=== PATIENT | female | born 1995 | race Caucasian/White ===

== ENCOUNTER 2021-03-01 17:31 | Emergency (ER) | payer BC ==
[~2021-03-01] VITALS: Ht 154.9 cm; Wt 52.7 kg
[2021-03-01 18:20] LABS: HEMATOCRIT 37.2 % (36.0-47.0); HEMOGLOBIN 12.3 g/dl (12.0-15.5); MEAN CORPUSCULAR HEMOGLOBIN 29.9 pg (27.0-33.0); MEAN CORPUSCULAR HGB CONC 33.1 g/dl (32.0-36.5); MEAN CORPUSCULAR VOLUME 90.3 fl (80.0-96.0); PLATELET COUNT, AUTOMATED 189 10^3/uL (150-450); RED BLOOD COUNT 4.12 10^6/uL (4.00-5.40); WHITE BLOOD COUNT 7.1 10^3/uL (4.0-10.0)
[2021-03-01 18:52] LABS: BLOOD UREA NITROGEN 21 MG/DL (7-18); CALCIUM LEVEL 8.8 MG/DL (8.5-10.1); CARBON DIOXIDE LEVEL 23 MEQ/L (21-32); CHLORIDE LEVEL 108 MEQ/L (98-107); CREATININE FOR GFR 0.74 MG/DL (0.55-1.30); GLOMERULAR FILTRATION RATE > 60.0 (>60); GLUCOSE, FASTING 133 MG/DL (70-100); MAGNESIUM LEVEL 1.8 MG/DL (1.8-2.4); POTASSIUM SERUM 3.4 MEQ/L (3.5-5.1); SODIUM LEVEL 140 MEQ/L (136-145)
[2021-03-01 19:31] VITALS: BP 112/61
== END 2021-03-01 19:44 | disposition home or self-care (01) ==
LOC: M ED 17:31
DX: R00.2 Palpitations (principal)

== ENCOUNTER → 2021-06-18 | Outpatient (CLI) | payer BC ==
[~2021-06-18] MED LIST: ONDA4TAB6 PO; STRA10CA PO
== END ==
LOC: M EKG 13:05
PROVIDERS: ATTEND Registered Nurse
DX: R00.2 Palpitations (principal)

== ENCOUNTER 2021-06-19 13:15 | Emergency (ER) | payer BC ==
[~2021-06-19] VITALS: Ht 154.9 cm; Wt 50.8 kg
[2021-06-19] MEDS ORDERED: STRA10CA PO (13:28)
[2021-06-19 13:55] LABS: BASO % 0.7 % (0.0-1.0); EOS # 0.1 10^3/uL (0.0-0.5); EOS % 2.2 % (0.0-3.0); HEMATOCRIT 38.4 % (36.0-47.0); HEMOGLOBIN 12.4 g/dl (12.0-15.5); LYMPH # 1.4 10^3/uL (1.5-5.0); LYMPH % 33.6 % (24.0-44.0); MEAN CORPUSCULAR HEMOGLOBIN 30.2 pg (27.0-33.0); MEAN CORPUSCULAR HGB CONC 32.3 g/dl (32.0-36.5); MEAN CORPUSCULAR VOLUME 93.4 fl (80.0-96.0); MONO # 0.3 10^3/uL (0.0-0.8); MONO % 6.1 % (2.0-8.0); NEUTROPHILS # 2.3 10^3/uL (1.5-8.5); NEUTROPHILS % 57.2 % (36.0-66.0); PLATELET COUNT, AUTOMATED 161 10^3/uL (150-450); RED BLOOD COUNT 4.11 10^6/uL (4.00-5.40); WHITE BLOOD COUNT 4.1 10^3/uL (4.0-10.0)
[2021-06-19 14:28] LABS: ALBUMIN 4.2 GM/DL (3.2-5.2); ALT/SGPT 19 U/L (12-78); BILIRUBIN,DIRECT 0.2 MG/DL (0.0-0.2); BILIRUBIN,TOTAL 0.7 MG/DL (0.2-1.0); BLOOD UREA NITROGEN 17 MG/DL (7-18); CALCIUM LEVEL 9.3 MG/DL (8.5-10.1); CARBON DIOXIDE LEVEL 28 MEQ/L (21-32); CHLORIDE LEVEL 108 MEQ/L (98-107); CREATININE FOR GFR 0.87 MG/DL (0.55-1.30); GLOMERULAR FILTRATION RATE > 60.0 (>60); GLUCOSE, FASTING 96 MG/DL (70-100); LIPASE 90 U/L (73-393); POTASSIUM SERUM 3.7 MEQ/L (3.5-5.1); SODIUM LEVEL 140 MEQ/L (136-145); TOTAL PROTEIN 7.3 GM/DL (6.4-8.2)
[2021-06-19 14:52] LABS: HCG, SERUM QUALITATIVE NEGATIVE (NEGATIVE)
[2021-06-19] MEDS ORDERED: ONDANSETRON 4MG/2ML VIAL IV ONE (19:40)
[2021-06-19] MEDS ORDERED: GASTROGRAFIN SOLUTION 30ML (Q9963) As Ordered ONE (21:04)
[2021-06-19] MEDS: GASTROGRAFIN SOLUTION 30ML PO SCH ×2 (21:14→21:43)
[2021-06-19 21:22] LABS: RSV AMPLIFICATION NEGATIVE (NEGATIVE)
[2021-06-19] MEDS ORDERED: ISOVUE-370 76% 100ML VIAL As Ordered ONE (22:20)
[2021-06-19] MEDS ORDERED: ONDA4TAB6 PO (23:26)
[2021-06-19 23:39] VITALS: BP 118/78
== END 2021-06-19 23:41 | disposition home or self-care (01) ==
LOC: M ED 13:15
DX: R19.7 Diarrhea, unspecified (principal); R11.0 Nausea
CPT/HCPCS: 74177; 80048; 80076; 83690; 84703; 85025; 87631; 99284; J2405; Q9967

== ENCOUNTER → 2021-06-20 | Outpatient (REF) | payer BC | LOC: M LAB REF 14:26 | PROVIDERS: ATTEND Registered Nurse | DX: R10.815 Periumbilic abdominal tenderness (principal); R10.813 Right lower quadrant abdominal tenderness ==

== ENCOUNTER → 2021-06-26 | Outpatient (REF) | payer BC | LOC: M LAB REF 16:12 | PROVIDERS: ATTEND Registered Nurse | DX: R10.813 Right lower quadrant abdominal tenderness (principal) ==

== ENCOUNTER → 2021-09-17 | Outpatient (CLI) | payer BC ==
[~2021-09-17] MED LIST changes: +ATOM80CA PO; +OMEP40CA4 PO; +SUCR1TA PO
== END ==
LOC: M LABSMTC 10:07
PROVIDERS: ATTEND Anesthesiology
DX: Z01.812 Encounter for preprocedural laboratory examination (principal); Z11.52 Encounter for screening for COVID-19

== ENCOUNTER 2021-09-22 12:03 | Day surgery (SDC) | payer BC ==
[~2021-09-22] VITALS: Ht 162.6 cm; Wt 51.2 kg
[~2021-09-22 12:03] MED LIST changes: +NS 1,000 ML IV ONE
[2021-09-22] MEDS ORDERED: propofoL 200 MG/20 ML VIAL As Ordered ONE (14:15)
[2021-09-22] MEDS ORDERED: LIDOCAINE 2% 100MG/5ML SDV (FOR ANES.) As Ordered ONE (14:15)
[2021-09-22] MEDS ORDERED: fentaNYL 100 MCG/2 ML INJECTION As Ordered ONE (14:16)
[2021-09-22 14:50] VITALS: BP 123/74
== END 2021-09-22 15:04 | disposition home or self-care (01) ==
LOC: M OPP 12:03
PROVIDERS: ATTEND Internal Medicine Gastroenterology
DX: K29.70 Gastritis, unspecified, without bleeding (principal); R10.13 Epigastric pain; Z79.899 Other long term (current) drug therapy; Z91.048 Other nonmedicinal substance allergy status
CPT/HCPCS: 43239; 88305; J3010

== ENCOUNTER → 2022-10-21 | Outpatient (REF) | payer BC ==
[~2022-10-21] MED LIST changes: -NS 1,000 ML IV ONE
[2022-10-21 19:35] LABS: GC DNA AMPLIFICATION NEGATIVE (NEGATIVE)
== END ==
LOC: M SFHCWAGY 16:42
PROVIDERS: ATTEND Nurse Practitioner Family
DX: Z12.4 Encounter for screening for malignant neoplasm of cervix (principal); N73.9 Female pelvic inflammatory disease, unspecified
CPT/HCPCS: 87070; 87661; 87810; 87850; G0123

== ENCOUNTER → 2022-11-25 | Outpatient (CLI) | payer BC | LOC: M WHC 11:57 | PROVIDERS: ATTEND Nurse Practitioner Family | DX: N92.0 Excessive and frequent menstruation with regular cycle (principal) ==